=== PATIENT | female | born 2000 | race Caucasian/White ===

== ENCOUNTER 2023-10-12 12:27 | Inpatient (IN) | payer OTHER ==
[2023-10-12 13:53] LABS: BASO % 0.5 % (0-2.0); EOS % 1.6 % (0-4.5); HEMATOCRIT 39.3 % (32.4-45.2); HEMOGLOBIN 13.4 GM/dL (10.7-15.3); LYMPH % 18.1 % (8-40); MCH 30.9 pg (25.7-33.7); MCHC 34.2 g/dl (32.0-36.0); MEAN CELL VOLUME 90.2 fl (80-96); MEAN PLT VOLUME 7.6 fl (7.5-11.1); MONO % 7.8 % (3.8-10.2); PLATELET COUNT 284 10^3/uL (134-434); RBC 4.35 M/mm3 (3.60-5.2); RDW 13.6 % (11.6-15.6); WHITE BLOOD COUNT 8.7 K/mm3 (4.0-10.0)
[2023-10-12 14:09] LABS: INR 0.95 (0.83-1.09)
[2023-10-12 14:12] LABS: ACTIVATED PTT 27.9 SECONDS (25.2-36.5)
[2023-10-12 14:20] LABS: POTASSIUM 4.3 mmol/L (3.5-5.1)
[2023-10-12 14:23] LABS: BLOOD UREA NITROGEN 7.1 mg/dL (7-18); CALCIUM 8.7 mg/dL (8.5-10.1)
[2023-10-12 14:25] LABS: CREATININE 0.5 mg/dL (0.55-1.3)
[2023-10-12 15:18] VITALS: BMI 34.3
[2023-10-12] MEDS ORDERED: OXYTOCIN 10 UNITS/ML VIAL ONE (15:42)
[2023-10-12] MEDS ORDERED: ONDANSETRON 4 MG/2 ML VIAL ONE (15:42)
[2023-10-12] MEDS ORDERED: FENTANYL CITRATE/PF 50 MCG/ML VIAL ONE (15:42)
[2023-10-12] MEDS ORDERED: KETOROLAC TROMETHAMINE 30 MG/1 ML VIAL ONE (15:42)
[2023-10-12] MEDS ORDERED: morphine SULFATE/PF 1 MG/2 ML (2cc Syringe - QUVA) ONE (15:42)
[2023-10-12] MEDS ORDERED: ceFAZolin SODIUM 1 GM VIAL ONE (15:47)
[2023-10-12] MEDS: OXYTOCIN 20 UNITS in 0.9% NS 20 UNIT/1,000 ML INFUS.BAG IV SCH (16:24)
[2023-10-12] MEDS ORDERED: METHYLERGONOVINE MALEATE 0.2 MG/1 ML AMP IM PRN (16:54)
[2023-10-12] MEDS ORDERED: CITRIC ACID/SODIUM CITRATE 30 ML UNIT-DOSE CUP PO ONE (16:54)
[2023-10-12] MEDS ORDERED: ACETAMINOPHEN 325 MG TABLET (FP) PO PRN ×2 (16:54→17:28)
[2023-10-12 17:00] LABS: ARTERIAL BLOOD GAS BASE EXCESS -6.5 mmol/L (-2-2)
[2023-10-12] MEDS ORDERED: ELECTROLYTE-148 SOLN 1,000 ML IV SCH (17:00)
[2023-10-12 17:06] LABS: ARTERIAL BLOOD GAS pH 7.166 (7.350-7.450)
[2023-10-12 17:07] LABS: ARTERIAL BLOOD GAS PO2 < 15.0 mmHg (80-100)
[2023-10-12] MEDS ORDERED: morphine SULFATE/PF 1 MG/2 ML (2cc Syringe - QUVA) EP ONE (17:28)
[2023-10-12] MEDS ORDERED: IBUPROFEN 600 MG TABLET (FP) PO PRN (17:28)
[2023-10-12] MEDS ORDERED: ONDANSETRON 4 MG/2 ML VIAL IVPUSH PRN (17:28)
[2023-10-12 17:39] LABS: VENOUS BASE EXCESS -3.4 mmol/L (-2-2); VENOUS O2 SATURATION 25.2 % (70-80); VENOUS PCO2 53.8 mmHg (38-52); VENOUS PH 7.273 (7.310-7.410)
[2023-10-12] MEDS ORDERED: OXYTOCIN 20 UNITS in 0.9% NS 20 UNIT/1,000 ML INFUS.BAG IV ONE (18:03)
[2023-10-12] MEDS ORDERED: IBUPROFEN 800 MG/8 ML IJ IVPB ONE (18:41)
[2023-10-12] MEDS: IBUPROFEN 800 MG/8 ML IJ IVPB PRN (18:47)
[2023-10-13] MEDS: CEFAZOLIN SODIUM 2 GM in DEXTROSE 5%-WATER 100 ML IVPB SCH ×4 (00:12→23:17)
[2023-10-13] MEDS: SIMETHICONE 80 MG TAB.CHEW (FP) PO PRN ×3 (00:30→23:17)
[2023-10-13] MEDS: OXYTOCIN 20 UNITS in 0.9% NS 20 UNIT/1,000 ML INFUS.BAG IV SCH (02:18)
[2023-10-13] MEDS ORDERED: oxyCODONE HCL 5 MG TABLET PO PRN ×2 (04:55)
[2023-10-13] MEDS: IBUPROFEN 800 MG/8 ML IJ IVPB PRN (07:32)
[2023-10-13] MEDS: ENOXAPARIN NA (PORCINE) 40 MG/0.4 ML DISP.SYRIN SQ SCH (09:49)
[2023-10-13 09:56] LABS: BASO % 0.4 % (0-2.0); EOS % 0.5 % (0-4.5); HEMATOCRIT 37.4 % (32.4-45.2); HEMOGLOBIN 12.6 GM/dL (10.7-15.3); LYMPH % 15.5 % (8-40); MCH 30.6 pg (25.7-33.7); MCHC 33.8 g/dl (32.0-36.0); MEAN CELL VOLUME 90.5 fl (80-96); MEAN PLT VOLUME 7.9 fl (7.5-11.1); MONO % 8.7 % (3.8-10.2); NEUT % 74.9 % (42.8-82.8); PLATELET COUNT 241 10^3/uL (134-434); RBC 4.12 M/mm3 (3.60-5.2); RDW 13.4 % (11.6-15.6)
[2023-10-13] MEDS: IBUPROFEN 600 MG TABLET (FP) PO PRN ×2 (15:25→23:18)
[2023-10-13] MEDS ORDERED: BISACODYL 10 MG SUPP.RECT RC PRN (16:55)
[2023-10-14] MEDS: IBUPROFEN 600 MG TABLET (FP) PO PRN ×2 (10:40→22:01)
[2023-10-14] MEDS: SIMETHICONE 80 MG TAB.CHEW (FP) PO PRN ×2 (10:40→22:01)
[2023-10-14] MEDS: ENOXAPARIN NA (PORCINE) 40 MG/0.4 ML DISP.SYRIN SQ SCH (10:40)
[2023-10-14] MEDS ORDERED: IBUPROFEN 800 MG/8 ML IJ IVPB PRN (19:01)
[2023-10-15 08:51] LABS: BASO % 0.6 % (0-2.0); EOS % 1.4 % (0-4.5); HEMATOCRIT 36.8 % (32.4-45.2); HEMOGLOBIN 12.3 GM/dL (10.7-15.3); LYMPH % 31.1 % (8-40); MCH 30.6 pg (25.7-33.7); MCHC 33.3 g/dl (32.0-36.0); MEAN CELL VOLUME 91.9 fl (80-96); MEAN PLT VOLUME 7.7 fl (7.5-11.1); MONO % 8.1 % (3.8-10.2); NEUT % 58.8 % (42.8-82.8); PLATELET COUNT 316 10^3/uL (134-434); RBC 4.01 M/mm3 (3.60-5.2); RDW 13.5 % (11.6-15.6); WHITE BLOOD COUNT 7.9 K/mm3 (4.0-10.0)
[2023-10-15] MEDS: ENOXAPARIN NA (PORCINE) 40 MG/0.4 ML DISP.SYRIN SQ SCH (10:39)
[2023-10-15 11:31] VITALS: BP 128/83; PULSE 102; RESP 16; TEMP 98.3
== END 2023-10-15 14:20 | disposition home or self-care (01) | DRG 540 ==
LOC: JLDR 12:27 → J3W 20:00
PROVIDERS: ADMIT Obstetrics & Gynecology; ATTEND Obstetrics & Gynecology
PROC: 10D00Z1 Extraction of Products of Conception, Low, Open Approach (ICD-10-PCS; principal; 2023-10-12)
DX: O34.219 Maternal care for unspecified type scar from previous cesarean delivery (principal); O41.03X0 Oligohydramnios, third trimester, not applicable or unspecified; Z3A.39 39 weeks gestation of pregnancy; Z37.0 Single live birth
CPT/HCPCS: 36415; 36600; 80048; 82803; 85025; 85610; 85730; 86780; 86850; 86900; 86901; 88307-TC